=== PATIENT | male | born 1965 | race Two or more races ===

== ENCOUNTER 2019-06-15 12:23 | Inpatient (IN) | payer MEDICAID, OTHER ==
[~2019-06-15] VITALS: Ht 162.6 cm; Wt 67.8 kg
[2019-06-15] MEDS ORDERED: NITROGLYCERIN 0.4MG TABLET SL SL PRN (13:45)
[2019-06-15] MEDS ORDERED: ASPIRIN 81MG TABLET PO ONE (13:45)
[2019-06-15 15:02] LABS: BASOPHILS % 1.9 % (0.0-2.0); HEMATOCRIT. 26.3 % (42.0-52.0); HEMOGLOBIN. 8.8 g/dL (14.0-18.0); LYMPHOCYTES % 14.6 % (20.0-50.0); MEAN CORPUSCULAR HEMOGLOBIN 31.3 pg (28.0-32.0); MEAN CORPUSCULAR VOLUME 93.7 fL (80.0-94.0); MEAN PLATELET VOLUME 7.6 fl (7.4-10.4); MONOCYTES % 7.4 % (2.0-8.0); NEUTROPHILS % 70.1 % (40.0-76.0); PLATELET 102 x1000/uL (130-400); RED CELL DISTRIBUTION WIDTH 14.9 % (11.6-14.6)
[2019-06-15 15:08] LABS: CHLORIDE 122 mEq/L (98-107)
[2019-06-15 15:13] LABS: ETHANOL BLOOD < 10 mg/dL
[2019-06-15 15:19] LABS: INR 1.1; PROTHROMBIN TIME 11.6 sec (9.6-11.0)
[2019-06-15] MEDS ORDERED: MORPHINE SULFATE 4 MG/ML CPJ (NOT FOR IM USE) IV STA (15:25)
[2019-06-15] MEDS ORDERED: ONDANSETRON HCL 4MG/2ML INJ IV STA (15:25)
[2019-06-15] MEDS ORDERED: INSULIN REGULAR (HUMULIN R) 300UNITS/3ML IV ONE (15:30)
[2019-06-15] MEDS ORDERED: SODIUM BICARBONATE 8.4% 1 MEQ/ML 50ML SYR IV ONE (15:30)
[2019-06-15] MEDS ORDERED: DEXTROSE 50% WATER 50ML SYRINGE IV ONE (15:30)
[2019-06-15] MEDS ORDERED: CALCIUM GLUCONATE 1,000 MG in DEXT 5% WATER 100 ML IV ONE (15:30)
[2019-06-15 16:00] LABS: HEPATITIS B SURFACE ANTIGEN NEGATIVE
[2019-06-15 16:29] LABS: HEPATITIS A AB IGM NEGATIVE (NEGATIVE)
[2019-06-15] MEDS ORDERED: DIPHENHYDRAMINE 50MG/ML VIAL IV PRN (17:30)
[2019-06-15] MEDS ORDERED: GUAIFENESIN 200MG/10ML SUGAR FREE UDC PO PRN (17:30)
[2019-06-15] MEDS ORDERED: HYDRALAZINE 20MG/ML VIAL IV PRN (17:30)
[2019-06-15] MEDS ORDERED: IPRATROPIUM/ALBUTEROL 0.5-3(2.5)MG/3ML NEB HHN PRN (17:30)
[2019-06-15 20:50] LABS: PHOSPHORUS 4.4 mg/dL (2.5-4.9)
[2019-06-15] MEDS ORDERED: GABA-529 PO (22:55)
[2019-06-15] MEDS ORDERED: GLIP5TAB12 PO (22:55)
[2019-06-15] MEDS ORDERED: HYDR100T26 PO (22:55)
[2019-06-15] MEDS ORDERED: CLON0.1T PO (22:55)
[2019-06-15] MEDS ORDERED: LISI30TA36 PO (22:55)
[2019-06-15 23:00] VITALS: BP 216/108
[2019-06-15] MEDS: ACETAMINOPHEN 325MG TABLET PO PRN (23:23)
[2019-06-15] MEDS: CLONIDINE 0.1MG TABLET PO PRN (23:23)
[2019-06-16] VITALS (22 sets, daily range): BP systolic 126–203; BP diastolic 77–104
[2019-06-16] MEDS ORDERED: INFLUENZA VIRUS VACCINE(AFLURIA) 0.5ML SYR IM ONE
[2019-06-16] MEDS ORDERED: PNEUMOCOCCAL 23-VAL P-SAC VAC 0.5 ML IM ONE
[2019-06-16] MEDS: HYDRALAZINE 20MG/ML VIAL IV PRN (04:20)
[2019-06-16 08:38] LABS: BASOPHILS % 1.7 % (0.0-2.0); EOSINOPHILS % 7.9 % (0.0-5.0); HEMOGLOBIN. 8.4 g/dL (14.0-18.0); LYMPHOCYTES % 16.7 % (20.0-50.0); MEAN CORPUSCULAR HEMOGLOBIN 31.3 pg (28.0-32.0); MEAN CORPUSCULAR VOLUME 93.6 fL (80.0-94.0); MEAN PLATELET VOLUME 7.7 fl (7.4-10.4); MONOCYTES % 9.4 % (2.0-8.0); NEUTROPHILS % 64.3 % (40.0-76.0); PLATELET 92 x1000/uL (130-400); RED BLOOD CELL COUNT 2.67 mill/uL (4.7-6.1); RED CELL DISTRIBUTION WIDTH 14.9 % (11.6-14.6)
[2019-06-16 09:23] LABS: CHLORIDE 124 mEq/L (98-107)
[2019-06-16 09:30] LABS: LDL CHOLESTEROL 90 mg/dL (5-100)
[2019-06-16 09:31] LABS: HDL CHOLESTEROL 31 mg/dL (40-59)
[2019-06-16] MEDS ORDERED: SODIUM BICARBONATE 8.4% 1 MEQ/ML 50ML SYR IV ONE (11:15)
[2019-06-16] MEDS ORDERED: CALCIUM GLUCONATE 1,000 MG in DEXT 5% WATER 90 ML IV ONE (11:15)
[2019-06-16] MEDS ORDERED: DEXTROSE 50% WATER 50ML SYRINGE IV ONE (11:45)
[2019-06-16] MEDS ORDERED: INSULIN REGULAR (HUMULIN R) UD 100 UNITS/ML SYR IV ONE (11:45)
[2019-06-16] MEDS: HYDROCODONE/ACETAMINOPHEN 5/325MG TABLET PO PRN (11:50)
[2019-06-16] MEDS ORDERED: SODIUM POLYSTYRENE SULFONATE 15 G/60 ML BOT PO NR (12:00)
[2019-06-16] MEDS ORDERED: CALCIUM GLUCONATE 1,000 MG in DEXT 5% WATER 90 ML IV NR (12:00)
[2019-06-16] MEDS ORDERED: CEFAZOLIN 1000MG PREMIX 50 ML IV NR (12:45)
[2019-06-16] MEDS ORDERED: SODIUM BICARBONATE 4% (2.4MEQ) 5ML VIAL IV ONE (12:50)
[2019-06-16] MEDS ORDERED: LIDOCAINE HCL 1% 20ML VIAL (Pyxis) INJ ONE (12:50)
[2019-06-16] MEDS ORDERED: LEVOFLOXACIN 750MG PREMIX 150 ML IV NR (14:00)
[2019-06-16] MEDS ORDERED: CEFAZOLIN 1000MG PREMIX 50 ML IV ONE (14:02)
[2019-06-16] MEDS ORDERED: FENTANYL CITRATE/PF 50MCG/ML 2ML VIAL ONE (14:03)
[2019-06-16] MEDS ORDERED: FENTANYL CITRATE/PF 50MCG/ML 2ML VIAL IV ONE (14:30)
[2019-06-16] MEDS ORDERED: ONDANSETRON HCL 4MG/2ML INJ ONE (14:47)
[2019-06-16] MEDS ORDERED: ONDANSETRON HCL 4MG/2ML INJ IV NR (15:00)
[2019-06-16 19:42] LABS: TOTAL IRON BINDING CAPACITY 262 ug/dL (250-450)
[2019-06-16 19:59] LABS: FERRITIN 88 ng/mL (22-322)
[2019-06-16 20:00] LABS: HEPATITIS B SURFACE AB < 3.1 mIU/mL
[2019-06-16] MEDS: CLONIDINE 0.1MG TABLET PO PRN (21:15)
[2019-06-16] MEDS: ACETAMINOPHEN 325MG TABLET PO PRN (21:15)
[2019-06-17] VITALS (11 sets, daily range): BP systolic 128–187; BP diastolic 63–90
[2019-06-17] MEDS: HYDRALAZINE 20MG/ML VIAL IV PRN ×2 (02:45→18:26)
[2019-06-17] MEDS: HYDROCODONE/ACETAMINOPHEN 5/325MG TABLET PO PRN ×3 (02:48→18:26)
[2019-06-17] MEDS: ONDANSETRON HCL 4MG/2ML INJ IV PRN (06:57)
[2019-06-17 07:14] LABS: BASOPHILS % 1.2 % (0.0-2.0); EOSINOPHILS % 7.7 % (0.0-5.0); HEMATOCRIT. 24.5 % (42.0-52.0); HEMOGLOBIN. 8.5 g/dL (14.0-18.0); LYMPHOCYTES % 14.6 % (20.0-50.0); MEAN CORPUSCULAR HEMOGLOBIN 31.9 pg (28.0-32.0); MEAN CORPUSCULAR VOLUME 92.1 fL (80.0-94.0); MEAN PLATELET VOLUME 8.5 fl (7.4-10.4); MONOCYTES % 9.6 % (2.0-8.0); NEUTROPHILS % 66.9 % (40.0-76.0); PLATELET 94 x1000/uL (130-400); RED BLOOD CELL COUNT 2.66 mill/uL (4.7-6.1); RED CELL DISTRIBUTION WIDTH 14.4 % (11.6-14.6)
[2019-06-17] MEDS: FUROSEMIDE 40MG/4ML VIAL IVP SCH (08:51)
[2019-06-17] MEDS: CLONIDINE 0.1MG TABLET PO PRN (14:10)
[2019-06-18] VITALS (10 sets, daily range): BP systolic 151–179; BP diastolic 74–97
[2019-06-18] MEDS: HYDRALAZINE 20MG/ML VIAL IV PRN ×3 (03:56→21:08)
[2019-06-18 06:28] LABS: EOSINOPHILS % 7.7 % (0.0-5.0); HEMATOCRIT. 24.7 % (42.0-52.0); HEMOGLOBIN. 8.5 g/dL (14.0-18.0); LYMPHOCYTES % 17.7 % (20.0-50.0); MEAN CORPUSCULAR HEMOGLOBIN 31.6 pg (28.0-32.0); MEAN CORPUSCULAR VOLUME 91.6 fL (80.0-94.0); MEAN PLATELET VOLUME 8.7 fl (7.4-10.4); MONOCYTES % 10.9 % (2.0-8.0); NEUTROPHILS % 62.7 % (40.0-76.0); PLATELET 88 x1000/uL (130-400); RED CELL DISTRIBUTION WIDTH 14.2 % (11.6-14.6)
[2019-06-18] MEDS: CLONIDINE 0.1MG TABLET PO PRN ×3 (09:35→23:50)
[2019-06-18] MEDS: FUROSEMIDE 40MG/4ML VIAL IVP SCH (09:35)
[2019-06-18] MEDS: HYDROCODONE/ACETAMINOPHEN 5/325MG TABLET PO PRN ×2 (09:46→17:36)
[2019-06-18] MEDS: ONDANSETRON HCL 4MG/2ML INJ IV PRN (09:53)
[2019-06-18 12:12] LABS: TOTAL IRON BINDING CAPACITY 241 ug/dL (250-450)
[2019-06-18] MEDS ORDERED: LEVOFLOXACIN 250MG PREMIX 50 ML IV SCH (13:00)
[2019-06-18] MEDS: METOCLOPRAMIDE HCL 5MG TABLET PO SCH ×2 (17:31→21:07)
[2019-06-19] VITALS: BP 184/95
[2019-06-19] MEDS: HYDRALAZINE 20MG/ML VIAL IV PRN ×3 (01:47→23:10)
[2019-06-19 04:00] VITALS: BP 184/98
[2019-06-19] MEDS: METOCLOPRAMIDE HCL 5MG TABLET PO SCH ×4 (04:59→21:06)
[2019-06-19] MEDS: CLONIDINE 0.1MG TABLET PO PRN ×2 (05:00→21:30)
[2019-06-19 05:44] LABS: BASOPHILS % 1.4 % (0.0-2.0); EOSINOPHILS % 9.2 % (0.0-5.0); HEMATOCRIT. 24.7 % (42.0-52.0); HEMOGLOBIN. 8.6 g/dL (14.0-18.0); LYMPHOCYTES % 18.9 % (20.0-50.0); MEAN CORPUSCULAR HEMOGLOBIN 31.7 pg (28.0-32.0); MEAN CORPUSCULAR VOLUME 91.3 fL (80.0-94.0); MEAN PLATELET VOLUME 8.1 fl (7.4-10.4); MONOCYTES % 9.9 % (2.0-8.0); NEUTROPHILS % 60.6 % (40.0-76.0); PLATELET 83 x1000/uL (130-400); RED BLOOD CELL COUNT 2.71 mill/uL (4.7-6.1); RED CELL DISTRIBUTION WIDTH 14.5 % (11.6-14.6)
[2019-06-19 08:00] VITALS: BP 186/96
[2019-06-19 10:00] VITALS: BP 170/87
[2019-06-19] MEDS: FUROSEMIDE 40MG/4ML VIAL IVP SCH (10:28)
[2019-06-19] MEDS: HYDROCODONE/ACETAMINOPHEN 5/325MG TABLET PO PRN (10:34)
[2019-06-19 11:37] VITALS: BP 169/80
[2019-06-19] MEDS ORDERED: LIDOCAINE HCL 1% 20ML VIAL (Pyxis) INJ ONE (13:06)
[2019-06-19] MEDS ORDERED: BACITRACIN 15GM TUBE TOP ONE (13:06)
[2019-06-19] MEDS ORDERED: THROMBIN (BOVINE) 5000 UNITS/VIAL TOP ONE ×2 (13:07→13:08)
[2019-06-19] MEDS ORDERED: HEPARIN SODIUM 1,000 UNIT/1ML VIAL IV ONE (13:07)
[2019-06-19] MEDS ORDERED: BUPIVACAINE HCL/PF 0.5% (5MG/ML) 10ML ONE (13:07)
[2019-06-19] MEDS ORDERED: BACITRACIN 50,000 UNITS/VIAL ONE (13:08)
[2019-06-19] MEDS ORDERED: FENTANYL CITRATE/PF 50MCG/ML 2ML VIAL ONE (14:16)
[2019-06-19] MEDS ORDERED: PROPOFOL 200MG/20ML VIAL IV ONE ×2 (14:16→14:53)
[2019-06-19] MEDS ORDERED: MIDAZOLAM HCL 2 MG/2 ML VIAL ONE (14:17)
[2019-06-19] MEDS ORDERED: ROPIVACAINE HCL 10MG/ML 20 ML VIAL EPI ONE (14:23)
[2019-06-19] MEDS ORDERED: DEXAMETHASONE 4MG/ML 1ML VIAL ONE (14:53)
[2019-06-19] MEDS ORDERED: ONDANSETRON HCL 4MG/2ML INJ ONE (14:53)
[2019-06-19] MEDS ORDERED: ONDANSETRON HCL 4MG/2ML INJ IV PRN (15:15)
[2019-06-19] MEDS ORDERED: LABETALOL 5MG/ML SYR 20 MG/4 ML SYRINGE IV PRN (15:15)
[2019-06-19] MEDS ORDERED: MEPERIDINE HCL/PF 25MG/ML CPJ IV PRN (15:15)
[2019-06-19] MEDS: HYDROMORPHONE HCL/PF 2MG/ML CPJ IV PRN ×2 (16:22→16:37)
[2019-06-19 20:00] VITALS: BP 147/104
[2019-06-20] VITALS (7 sets, daily range): BP systolic 150–173; BP diastolic 78–93
[2019-06-20] MEDS: METOCLOPRAMIDE HCL 5MG TABLET PO SCH ×4 (06:32→20:17)
[2019-06-20] MEDS: CLONIDINE 0.1MG TABLET PO PRN (06:33)
[2019-06-20] MEDS: FUROSEMIDE 40MG/4ML VIAL IVP SCH (09:35)
[2019-06-20] MEDS: HYDROCODONE/ACETAMINOPHEN 5/325MG TABLET PO PRN ×2 (11:42→20:18)
[2019-06-21] VITALS (7 sets, daily range): BP systolic 129–176; BP diastolic 67–94
[2019-06-21] MEDS: CLONIDINE 0.1MG TABLET PO PRN ×2 (00:45→17:46)
[2019-06-21] MEDS: HYDRALAZINE 20MG/ML VIAL IV PRN (02:38)
[2019-06-21] MEDS: HYDROCODONE/ACETAMINOPHEN 5/325MG TABLET PO PRN (06:33)
[2019-06-21] MEDS: METOCLOPRAMIDE HCL 5MG TABLET PO SCH ×3 (06:33→17:46)
[2019-06-21] MEDS ORDERED: HEPARIN SODIUM 1,000 UNIT/1ML VIAL IV SCH (09:45)
[2019-06-21] MEDS: ACETAMINOPHEN 325MG TABLET PO PRN (13:36)
== END 2019-06-21 20:25 | disposition home health service (06) | DRG 444 ==
LOC: ER 12:23 → 5EST 17:18 → UNDODISIN 19:00 → ENRESERV 20:36
PROVIDERS: ADMIT Internal Medicine; ATTEND Internal Medicine
PROC: 02HV33Z Insertion of Infusion Device into Superior Vena Cava, Percutaneous Approach (ICD-10-PCS; 2019-06-16)
PROC: B5181ZA Fluoroscopy of Superior Vena Cava using Low Osmolar Contrast, Guidance (ICD-10-PCS; 2019-06-16)
PROC: B548ZZA Ultrasonography of Superior Vena Cava, Guidance (ICD-10-PCS; 2019-06-16)
PROC: 03180ZD Bypass Left Brachial Artery to Upper Arm Vein, Open Approach (ICD-10-PCS; principal; 2019-06-19)
PROC: 5A1D70Z Performance of Urinary Filtration, Intermittent, Less than 6 Hours Per Day (ICD-10-PCS; 2019-06-20)
PROC: 5A1D70Z Performance of Urinary Filtration, Intermittent, Less than 6 Hours Per Day (ICD-10-PCS; 2019-06-21)
DX: N17.9 Acute kidney failure, unspecified (principal); J96.90 Respiratory failure, unspecified, unspecified whether with hypoxia or hypercapnia; J90 Pleural effusion, not elsewhere classified; D61.818 Other pancytopenia; J18.9 Pneumonia, unspecified organism; E44.0 Moderate protein-calorie malnutrition; D69.6 Thrombocytopenia, unspecified; I12.0 Hypertensive chronic kidney disease with stage 5 chronic kidney disease or end stage renal disease; E87.2 Acidosis; E87.5 Hyperkalemia; E87.70 Fluid overload, unspecified; I16.0 Hypertensive urgency; N18.6 End stage renal disease; E87.8 Other disorders of electrolyte and fluid balance, not elsewhere classified; D63.8 Anemia in other chronic diseases classified elsewhere; I31.3 Pericardial effusion (noninflammatory); D50.9 Iron deficiency anemia, unspecified; E11.649 Type 2 diabetes mellitus with hypoglycemia without coma; E11.42 Type 2 diabetes mellitus with diabetic polyneuropathy; G89.4 Chronic pain syndrome; R26.9 Unspecified abnormalities of gait and mobility; K80.20 Calculus of gallbladder without cholecystitis without obstruction; I12.9 Hypertensive chronic kidney disease with stage 1 through stage 4 chronic kidney disease, or unspecified chronic kidney disease; M48.02 Spinal stenosis, cervical region; M48.061 Spinal stenosis, lumbar region without neurogenic claudication; Z99.2 Dependence on renal dialysis; Z98.1 Arthrodesis status; Z68.25 Body mass index [BMI] 25.0-25.9, adult
CPT/HCPCS: 36415; 36558; 71045; 72131; 72141; 72146; 72148; 74176; 76937; 77001; 80048; 80053; 80061; 80320; 82728; 82962; 83540; 83550; 83735; 83880; 84100; 84145; 84443; 84484; 85025; 86705; 86706; 86709; 86803; 87340; 90471; 90686; 90732; 92610; 93005; 93970; 93971; 96361; 96365; 96375; 97162; 97166; 99285; J0360; J0610; J0690; J1100; J1170; J1642; J1644; J1815; J1940; J1956; J2250; J2270; J2405; J2704; J2795; J3010; J3490; J7040; J7060; J8597; G0480

== ENCOUNTER 2020-06-12 12:30 | Emergency (ER) | payer OTHER ==
[~2020-06-12] VITALS: Ht 167.6 cm; Wt 77.0 kg
[~2020-06-12 12:30] MED LIST: CLON0.1T PO; GABA-529 PO; GLIP5TAB12 PO; HYDR100T26 PO; LISI30TA36 PO
[2020-06-12 13:55] LABS: BASOPHILS % 1.3 % (0.0-2.0); HEMOGLOBIN. 10.3 g/dL (14.0-18.0); LYMPHOCYTES % 15.2 % (20.0-50.0); MEAN CORPUSCULAR HEMOGLOBIN 32.9 pg (28.0-32.0); MEAN CORPUSCULAR VOLUME 95.6 fL (80.0-94.0); MEAN PLATELET VOLUME 8.2 fl (7.4-10.4); MONOCYTES % 7.5 % (2.0-8.0); PLATELET 136 x1000/uL (130-400); RED BLOOD CELL COUNT 3.14 mill/uL (4.7-6.1); RED CELL DISTRIBUTION WIDTH 13.8 % (11.6-14.6)
[2020-06-12 14:01] LABS: CHLORIDE 104 mEq/L (98-107)
[2020-06-12 14:25] LABS: INR 1.1; PROTHROMBIN TIME 11.5 sec (9.6-11.0)
[2020-06-12 19:07] VITALS: BP 167/84
== END 2020-06-12 19:18 | disposition short-term general hospital (02) ==
LOC: ER 12:42 → EDBEDREQ 15:55 → ER 19:18 → CANBEDREQ 19:50
DX: I13.2 Hypertensive heart and chronic kidney disease with heart failure and with stage 5 chronic kidney disease, or end stage renal disease (principal); N18.6 End stage renal disease; I50.9 Heart failure, unspecified; E11.22 Type 2 diabetes mellitus with diabetic chronic kidney disease; D53.9 Nutritional anemia, unspecified; Z20.822 Contact with and (suspected) exposure to COVID-19; Z99.2 Dependence on renal dialysis; Z79.4 Long term (current) use of insulin
CPT/HCPCS: 36415; 71045; 80053; 82962; 84484; 85025; 85610; 93005; 99285; C9803; U0003

== ENCOUNTER 2020-07-22 10:17 | Emergency (ER) | payer MEDICAID, OTHER ==
[~2020-07-22] VITALS: Ht 162.6 cm; Wt 73.0 kg
[2020-07-22] MEDS ORDERED: SODIUM CHLORIDE 0.9% 1000ML BAG (SEPSIS BOLUS) IV ONE (10:45)
[2020-07-22 11:12] LABS: BASOPHILS % 1.7 % (0.0-2.0); EOSINOPHILS % 7.3 % (0.0-5.0); HEMATOCRIT. 25.3 % (42.0-52.0); HEMOGLOBIN. 8.7 g/dL (14.0-18.0); LYMPHOCYTES % 23.1 % (20.0-50.0); MEAN CORPUSCULAR HEMOGLOBIN 32.2 pg (28.0-32.0); MEAN CORPUSCULAR VOLUME 93.6 fL (80.0-94.0); MONOCYTES % 6.7 % (2.0-8.0); NEUTROPHILS % 61.2 % (40.0-76.0); PLATELET 115 x1000/uL (130-400); RED BLOOD CELL COUNT 2.71 mill/uL (4.7-6.1); RED CELL DISTRIBUTION WIDTH 13.5 % (11.6-14.6)
[2020-07-22 11:19] LABS: CHLORIDE 99 mEq/L (98-107)
[2020-07-22 11:34] LABS: INR 1.1; PROTHROMBIN TIME 11.5 sec (9.6-11.0)
[2020-07-22] MEDS ORDERED: VANCOMYCIN 1 G PREMIX 200 ML IV SCH (12:30)
[2020-07-22 13:38] LABS: BG BASE EXCESS 3.8 mmol/L (-2.0-2.0); BG CARBOXYHEMOGLOBIN 0.3 % (0.5-1.5); BG DEOXYHEMOGLOBIN 3.2 % (0.0-5.0); BG FRACTION INSPIRED OXYGEN 21; BG HCO3 ACT 27.3 mmol/L (22.0-26.0); BG METHEMOGLOBIN 0.2 % (0.0-1.5); BG OXYGEN SATURATION 96.8 % (92.0-98.5); BG OXYHEMOGLOBIN 96.3 % (94.0-97.0); BG PCO2 36.5 mmHg (35.0-45.0); BG PH 7.492 (7.350-7.450); BG PO2 116.2 mmHg (75.0-100.0); BG SAMPLE SITE RIGHT RADIAL; BG TOTAL HEMOGLOBIN 8.6 g/dL (12.0-18.0); BG VENT MODE ROOM AIR
[2020-07-22 15:44] VITALS: BP 175/89
== END 2020-07-22 15:52 | disposition short-term general hospital (02) ==
LOC: ER 10:17 → CANBEDREQ 14:08 → ER 15:52
DX: F44.5 Conversion disorder with seizures or convulsions (principal)
CPT/HCPCS: 36415; 36600; 70450; 71045; 80053; 82375; 82805; 82962; 83605; 83735; 84145; 84443; 84484; 85025; 85610; 87040; 93005; 96365; 99285; J3370; J7030

== ENCOUNTER 2020-11-12 18:21 | Emergency (ER) | payer OTHER ==
[~2020-11-12] VITALS: Ht 157.5 cm; Wt 56.0 kg
[2020-11-12 18:24] VITALS: BP 135/68
[2020-11-12 21:09] LABS: BASOPHILS % 2.1 % (0.0-2.0); EOSINOPHILS % 0.9 % (0.0-5.0); HEMATOCRIT. 36.7 % (42.0-52.0); HEMOGLOBIN. 12.6 g/dL (14.0-18.0); LYMPHOCYTES % 17.3 % (20.0-50.0); MEAN CORPUSCULAR HEMOGLOBIN 32.1 pg (28.0-32.0); MEAN PLATELET VOLUME 8.3 fl (7.4-10.4); MONOCYTES % 8.5 % (2.0-8.0); NEUTROPHILS % 71.2 % (40.0-76.0); PLATELET 132 x1000/uL (130-400); RED BLOOD CELL COUNT 3.91 mill/uL (4.7-6.1); RED CELL DISTRIBUTION WIDTH 15.1 % (11.6-14.6)
[2020-11-12 21:14] LABS: CHLORIDE 99 mEq/L (98-107)
[2020-11-12] MEDS ORDERED: METHOCARBAMOL 500MG TABLET PO ONE (21:15)
[2020-11-12] MEDS ORDERED: HYDROCODONE/ACETAMINOPHEN 5/325MG TABLET PO ONE (21:15)
[2020-11-12 22:50] LABS: CLARITY URINE TURBID (CLEAR); KETONES URINE TRACE (NEGATIVE); LEUKOCYTE ESTERASE URINE 3+ (NEGATIVE); NITRITE URINE NEGATIVE (NEGATIVE); OCCULT BLOOD URINE 2+ (NEGATIVE); PROTEIN URINE 3+ (NEGATIVE); SPECIFIC GRAVITY URINE 1.017 (1.005-1.030)
[2020-11-12 22:55] LABS: COLOR URINE DARK YELLOW (YELLOW)
[2020-11-12] MEDS ORDERED: CEFTRIAXONE SODIUM 1 G/VIAL IM ONE (23:15)
[2020-11-12] MEDS ORDERED: METH-653 MT (23:20)
[2020-11-12] MEDS ORDERED: CEPH250C2 MT (23:20)
== END 2020-11-12 23:53 | disposition home or self-care (01) ==
LOC: ER 18:21
DX: N39.0 Urinary tract infection, site not specified (principal); E11.9 Type 2 diabetes mellitus without complications; I11.0 Hypertensive heart disease with heart failure; I50.9 Heart failure, unspecified; Z98.890 Other specified postprocedural states
CPT/HCPCS: 36415; 80053; 81003; 82962; 83690; 84484; 85025; 87077; 87086; 87186; 93005; 96372; 99284; J0696

== ENCOUNTER 2021-04-01 11:44 | Inpatient (IN) | payer OTHER ==
[~2021-04-01] VITALS: Ht 167.6 cm; Wt 65.5 kg
[~2021-04-01 11:44] MED LIST changes: +CEPH250C2 MT; +HEPARIN SODIUM 1,000 UNIT/1ML VIAL IV ONE; +METH-653 MT; +NICARDIPINE 100MCG/ML 10ML VIAL (CATH LAB) IV ONE; +NITROGLYCERIN 50MCG/ML 10ML VIAL (CATH LAB) IV ONE
[2021-04-01] MEDS ORDERED: ASPIRIN 81MG TABLET PO ONE (12:45)
[2021-04-01 13:02] LABS: BASOPHILS % 1.8 % (0.0-2.0); EOSINOPHILS % 2.3 % (0.0-5.0); HEMATOCRIT. 30.2 % (42.0-52.0); HEMOGLOBIN. 10.1 g/dL (14.0-18.0); LYMPHOCYTES % 15.1 % (20.0-50.0); MEAN CORPUSCULAR HEMOGLOBIN 32.2 pg (28.0-32.0); MEAN CORPUSCULAR VOLUME 95.8 fL (80.0-94.0); MEAN PLATELET VOLUME 7.9 fl (7.4-10.4); MONOCYTES % 9.6 % (2.0-8.0); NEUTROPHILS % 71.2 % (40.0-76.0); PLATELET 103 x1000/uL (130-400); RED BLOOD CELL COUNT 3.15 mill/uL (4.7-6.1); RED CELL DISTRIBUTION WIDTH 14.1 % (11.6-14.6)
[2021-04-01 13:04] LABS: CHLORIDE 101 mEq/L (98-107)
[2021-04-01] MEDS: NITROGLYCERIN 0.4MG TABLET SL SL PRN ×2 (13:16→13:57)
[2021-04-01 13:30] LABS: D-DIMER 0.74 mg/L FEU (<0.50)
[2021-04-01] MEDS ORDERED: HEPARIN 5000 UNITS/ML VIAL IV ONE (14:00)
[2021-04-01] MEDS ORDERED: HEPARIN 25,000 UNITS PREMIX 250 ML IV SCH (14:00)
[2021-04-01 14:03] LABS: INR 1.1; PARTIAL THROMBOPLASTIN TIME 29.9 sec (23.4-31.0); PROTHROMBIN TIME 11.9 sec (9.6-11.0)
[2021-04-01] MEDS ORDERED: HYDRALAZINE 20MG/ML VIAL IV NR (14:45)
[2021-04-01] MEDS ORDERED: MORPHINE SULFATE 2 MG/ML CPJ (NOT FOR IM USE) IV NR (14:45)
[2021-04-01] MEDS ORDERED: IOHEXOL-300 100 ML BOTTLE ONE (14:58)
[2021-04-01] MEDS ORDERED: IODIXANOL 320MG/ML 100 ML BOTTLE IV ONE (14:58)
[2021-04-01] MEDS ORDERED: LIDOCAINE HCL 1% 10 MG/ML 10ML VIAL ONE (14:58)
[2021-04-01] MEDS ORDERED: LOSARTAN POTASSIUM 25 MG TABLET PO SCH (15:00)
[2021-04-01] MEDS ORDERED: MIDAZOLAM HCL 2 MG/2 ML VIAL ONE (15:13)
[2021-04-01] MEDS ORDERED: FENTANYL CITRATE/PF 50MCG/ML 2ML VIAL ONE (15:13)
[2021-04-01] MEDS ORDERED: ASPIRIN/SOD BICARB/CITRIC ACID 324MG TAB EFF ONE (15:18)
[2021-04-01] MEDS ORDERED: DEXTROSE 50% WATER 50ML SYRINGE IV PRN (15:30)
[2021-04-01] MEDS ORDERED: LORAZEPAM 2MG/ML CPJ IV PRN (15:30)
[2021-04-01] MEDS ORDERED: IPRATROPIUM/ALBUTEROL 0.5-3(2.5)MG/3ML NEB NEB PRN (15:30)
[2021-04-01] MEDS ORDERED: MORPHINE SULFATE 2 MG/ML CPJ (NOT FOR IM USE) IV PRN ×2 (15:30→16:00)
[2021-04-01] MEDS ORDERED: DIPHENHYDRAMINE 50MG/ML VIAL IV PRN (15:30)
[2021-04-01] MEDS ORDERED: ONDANSETRON HCL 4MG/2ML INJ IV PRN ×2 (15:30→16:00)
[2021-04-01] MEDS ORDERED: DEXT 5%/0.45% NACL 1000ML 1,000 ML IV ONE (15:30)
[2021-04-01] MEDS ORDERED: LABETALOL HCL 5MG/ML VIAL 20ML IV ONE (15:42)
[2021-04-01] MEDS ORDERED: NALOXONE HCL 0.4MG/ML VIAL IV PRN (15:45)
[2021-04-01] MEDS ORDERED: ATROPINE SULFATE 1MG/10ML SYR IV PRN (16:00)
[2021-04-01 16:45] VITALS: BP 181/94
[2021-04-01] MEDS: BLOOD SUGAR DIAGNOSTIC STRIP TEST SCH ×2 (16:50→21:16)
[2021-04-01 16:58] VITALS: BP 178/93
[2021-04-01] MEDS ORDERED: MINO2.5T2 PO (17:13)
[2021-04-01] MEDS ORDERED: HYDR-4001 PO (17:13)
[2021-04-01] MEDS ORDERED: DIAZ5TAB4 PO (17:13)
[2021-04-01] MEDS ORDERED: TRAM50TA3 PO (17:13)
[2021-04-01] MEDS ORDERED: DOCU-150 PO (17:13)
[2021-04-01] MEDS ORDERED: FERR325T6 PO (17:13)
[2021-04-01] MEDS ORDERED: ASPI-1406 PO (17:13)
[2021-04-01] MEDS: INSULIN LISPRO 100 UNITS/ML SUBCUT SCH ×2 (17:20→21:00)
[2021-04-01] MEDS ORDERED: AMOX-494 MT (17:25)
[2021-04-01] MEDS ORDERED: LORA-250 PO (17:25)
[2021-04-01] MEDS ORDERED: CALC667C PO (17:25)
[2021-04-01] MEDS: HYDRALAZINE 20MG/ML VIAL IV PRN (17:43)
[2021-04-01] MEDS: LOSARTAN POTASSIUM 25 MG TABLET PO SCH (18:02)
[2021-04-01] MEDS: METOPROLOL TARTRATE 25MG TABLET PO SCH (18:02)
[2021-04-01 18:09] VITALS: BP 177/91
[2021-04-01] MEDS ORDERED: *PATIENT'S OWN MEDICATION STORAGE XX SCH (18:15)
[2021-04-01 20:00] VITALS: BP 182/80
[2021-04-01] MEDS: AMLODIPINE 5MG TABLET PO SCH (21:00)
[2021-04-01 22:00] VITALS: BP 140/57
[2021-04-02] VITALS (17 sets, daily range): BP systolic 117–189; BP diastolic 60–109
[2021-04-02] MEDS: AMLODIPINE 5MG TABLET PO SCH ×3 (00:28→20:22)
[2021-04-02 01:01] LABS: CREATINE KINASE MB FRACTION 5.3 ng/mL (0.5-3.6)
[2021-04-02] MEDS: HYDRALAZINE 20MG/ML VIAL IV PRN ×2 (02:10→22:18)
[2021-04-02] MEDS: ACETAMINOPHEN 325MG TABLET PO PRN ×2 (02:10→07:33)
[2021-04-02 06:53] LABS: BASOPHILS % 2.3 % (0.0-2.0); EOSINOPHILS % 3.9 % (0.0-5.0); HEMATOCRIT. 31.4 % (42.0-52.0); HEMOGLOBIN. 10.8 g/dL (14.0-18.0); LYMPHOCYTES % 23.1 % (20.0-50.0); MEAN CORPUSCULAR HEMOGLOBIN 32.1 pg (28.0-32.0); MEAN CORPUSCULAR VOLUME 93.8 fL (80.0-94.0); MEAN PLATELET VOLUME 8.8 fl (7.4-10.4); MONOCYTES % 12.5 % (2.0-8.0); NEUTROPHILS % 58.2 % (40.0-76.0); PLATELET 133 x1000/uL (130-400); RED BLOOD CELL COUNT 3.35 mill/uL (4.7-6.1); RED CELL DISTRIBUTION WIDTH 13.3 % (11.6-14.6)
[2021-04-02] MEDS: BLOOD SUGAR DIAGNOSTIC STRIP TEST SCH ×4 (06:56→20:22)
[2021-04-02 06:59] LABS: CREATINE KINASE MB FRACTION 3.5 ng/mL (0.5-3.6)
[2021-04-02] MEDS: INSULIN LISPRO 100 UNITS/ML SUBCUT SCH ×4 (07:20→20:22)
[2021-04-02 07:23] LABS: HEPATITIS B SURFACE ANTIGEN NEGATIVE
[2021-04-02] MEDS: FAMOTIDINE 20MG/2ML VIAL IV SCH (07:33)
[2021-04-02] MEDS: ASPIRIN 81MG EC TABLET PO SCH (07:33)
[2021-04-02] MEDS: LOSARTAN POTASSIUM 25 MG TABLET PO SCH ×2 (07:34→20:22)
[2021-04-02] MEDS: METOPROLOL TARTRATE 25MG TABLET PO SCH (07:35)
[2021-04-02] MEDS ORDERED: MORPHINE SULFATE 2 MG/ML CPJ (NOT FOR IM USE) IV SCH (08:45)
[2021-04-02] MEDS ORDERED: PROCHLORPERAZINE 10MG/2ML VIAL IV PRN (09:00)
[2021-04-02] MEDS ORDERED: METOPROLOL TARTRATE 25MG TABLET PO SCH (09:00)
[2021-04-02] MEDS ORDERED: NEBIVOLOL HCL 5 MG TABLET PO SCH (09:00)
[2021-04-02] MEDS ORDERED: IOHEXOL-350 100 ML BOTTLE ONE (14:30)
[2021-04-02 15:23] LABS: *AMPHETAMINES SCREEN URINE NEGATIVE (NEGATIVE); *BARBITURATES SCREEN URINE NEGATIVE (NEGATIVE); *BENZODIAZEPINES SCREEN URINE PRESUMTIVE POSITIVE (NEGATIVE); *COCAINE SCREEN URINE NEGATIVE (NEGATIVE); METHADONE URINE SCREEN NEGATIVE (NEGATIVE)
[2021-04-02 15:24] LABS: CANNABINOID URINE SCREEN NEGATIVE (NEGATIVE); OPIATES URINE SCREEN NEGATIVE (NEGATIVE); PHENCYCLIDINE URINE SCREEN NEGATIVE (NEGATIVE)
[2021-04-02] MEDS: METOPROLOL TARTRATE 50MG TABLET PO SCH (20:22)
[2021-04-03] VITALS (12 sets, daily range): BP systolic 116–174; BP diastolic 63–96
[2021-04-03] MEDS: BLOOD SUGAR DIAGNOSTIC STRIP TEST SCH ×4 (06:42→21:00)
[2021-04-03] MEDS: INSULIN LISPRO 100 UNITS/ML SUBCUT SCH ×4 (06:42→21:00)
[2021-04-03 08:40] LABS: BASOPHILS % 1.8 % (0.0-2.0); EOSINOPHILS % 6.1 % (0.0-5.0); HEMATOCRIT. 32.1 % (42.0-52.0); HEMOGLOBIN. 10.9 g/dL (14.0-18.0); LYMPHOCYTES % 22.9 % (20.0-50.0); MEAN CORPUSCULAR HEMOGLOBIN 32.4 pg (28.0-32.0); MEAN CORPUSCULAR VOLUME 95.3 fL (80.0-94.0); MEAN PLATELET VOLUME 8.5 fl (7.4-10.4); MONOCYTES % 12.9 % (2.0-8.0); NEUTROPHILS % 56.3 % (40.0-76.0); PLATELET 125 x1000/uL (130-400); RED BLOOD CELL COUNT 3.37 mill/uL (4.7-6.1); RED CELL DISTRIBUTION WIDTH 13.6 % (11.6-14.6)
[2021-04-03] MEDS: METOPROLOL TARTRATE 50MG TABLET PO SCH ×2 (09:14→23:18)
[2021-04-03] MEDS: ASPIRIN 81MG EC TABLET PO SCH (09:14)
[2021-04-03] MEDS: LOSARTAN POTASSIUM 50 MG TABLET PO SCH ×2 (09:14→23:18)
[2021-04-03] MEDS: AMLODIPINE 5MG TABLET PO SCH ×2 (09:14→23:18)
[2021-04-03] MEDS: FAMOTIDINE 20MG/2ML VIAL IV SCH (09:24)
[2021-04-03] MEDS: METOCLOPRAMIDE HCL 10MG/2ML VIAL IV SCH ×3 (13:09→23:18)
[2021-04-03] MEDS ORDERED: LOSA50TA3 MT (15:07)
[2021-04-03] MEDS ORDERED: METO-293 PO (15:07)
[2021-04-03] MEDS ORDERED: METO-539 MT (15:07)
[2021-04-03] MEDS ORDERED: AMLO5TAB4 MT (15:07)
[2021-04-03] MEDS ORDERED: BISACODYL 10MG SUPP PR NR (17:15)
[2021-04-03] MEDS ORDERED: LACTULOSE 20G/30ML UDC PO NR (17:15)
[2021-04-04] VITALS: BP 157/82
[2021-04-04 04:00] VITALS: BP 150/75
[2021-04-04 04:18] VITALS: BP 150/75
[2021-04-04] MEDS: METOCLOPRAMIDE HCL 10MG/2ML VIAL IV SCH (05:14)
[2021-04-04] MEDS: BLOOD SUGAR DIAGNOSTIC STRIP TEST SCH (06:08)
[2021-04-05] MEDS ORDERED: FAMOTIDINE 20MG TABLET PO SCH (09:00)
== END 2021-04-04 07:44 | disposition home or self-care (01) | DRG 190 ==
LOC: ER 11:44 → 3WST 13:57 → EDBEDREQ 14:00 → EDBEDREQSVC 14:00 → EDBEDREQTM 14:00 → SUPCPDRO 15:12 → ENRESERV 15:17 → CANRESERV 15:17
PROVIDERS: ADMIT Internal Medicine; ATTEND Internal Medicine
PROC: 4A023N7 Measurement of Cardiac Sampling and Pressure, Left Heart, Percutaneous Approach (ICD-10-PCS; principal; 2021-04-01)
PROC: B2111ZZ Fluoroscopy of Multiple Coronary Arteries using Low Osmolar Contrast (ICD-10-PCS; 2021-04-01)
PROC: 5A1D70Z Performance of Urinary Filtration, Intermittent, Less than 6 Hours Per Day (ICD-10-PCS; 2021-04-01)
PROC: 5A1D70Z Performance of Urinary Filtration, Intermittent, Less than 6 Hours Per Day (ICD-10-PCS; 2021-04-03)
DX: I21.4 Non-ST elevation (NSTEMI) myocardial infarction (principal); I50.33 Acute on chronic diastolic (congestive) heart failure; N18.6 End stage renal disease; D69.6 Thrombocytopenia, unspecified; E11.22 Type 2 diabetes mellitus with diabetic chronic kidney disease; K56.7 Ileus, unspecified; I16.0 Hypertensive urgency; Z20.822 Contact with and (suspected) exposure to COVID-19; D64.9 Anemia, unspecified; E78.5 Hyperlipidemia, unspecified; K80.20 Calculus of gallbladder without cholecystitis without obstruction; I25.10 Atherosclerotic heart disease of native coronary artery without angina pectoris; I13.2 Hypertensive heart and chronic kidney disease with heart failure and with stage 5 chronic kidney disease, or end stage renal disease; Z99.2 Dependence on renal dialysis; Z79.899 Other long term (current) drug therapy
CPT/HCPCS: 36415; 70496; 70498; 71045; 71275; 74018; 74176; 76700; 80048; 80053; 80076; 80305; 82550; 82553; 82962; 83540; 83550; 83735; 83880; 84443; 84484; 85025; 85379; 86705; 86709; 86803; 86850; 86900; 87340; 87426; 93005; 93306; 93458; 93970; 99291; C1769; C1887; C1893; J0360; J1644; J2250; J2270; J2405; J2765; J3010; J3490; Q9967